=== PATIENT | male | born 1950 | race Caucasian/White ===

== ENCOUNTER 2016-09-22 11:46 | Emergency (ER) | payer OTHER ==
[~2016-09-22] VITALS: Wt 81.6 kg
[2016-09-22] MEDS ORDERED: BISOPROLOL FUMA10 MG PO (11:50)
[2016-09-22] MEDS ORDERED: AMLODIPINE BESYL5 MG PO (11:50)
[2016-09-22] MEDS ORDERED: PREDNISONE20 M1 PO (11:50)
[2016-09-22] MEDS ORDERED: LISINOPRIL40 MG PO (11:50)
[2016-09-22] MEDS ORDERED: PRAVASTATIN SOD40 MG PO (11:51)
[2016-09-22] MEDS ORDERED: ESCITALOPRAM OX10 MG PO (11:51)
[2016-09-22 12:05] LABS: BASO % 0.2 % (0.0-1.0); EOS # 0.1 10*3/uL (0.0-0.4); EOS % 0.7 % (1.0-4.0); HEMATOCRIT 42.6 % (42.0-52.0); HEMOGLOBIN 14.6 g/dl (14.0-18.0); IG # 0.1 10*3/uL (0.0-0.1); LYMPH # 2.6 10*3/uL (1.3-4.4); LYMPH % 19.4 % (27.0-41.0); MEAN CELL VOLUME 90.3 fl (80.0-94.0); MEAN CORPUSCULAR HGB 30.9 pg (27.0-31.0); MEAN CORPUSCULAR HGB CONC 34.3 g/dl (33.0-37.0); MEAN PLATELET VOLUME 10.2 fl (9.6-12.3); MONO % 7.5 % (3.0-9.0); NEUT # 9.6 10*3/uL (2.3-7.9); NEUT % 71.7 % (47.0-73.0); PLATELET COUNT AUTOMATED 244 10*3/uL (130-400); RED BLOOD COUNT 4.72 10*6/uL (4.50-5.90); RED CELL DISTRI WIDTH 13.7 % (0-14.5); WHITE BLOOD COUNT 13.3 10*3/uL (4.8-10.8)
[2016-09-22 12:14] LABS: PROTHROMBIN TIME 10.7 SECONDS (9.0-12.4)
[2016-09-22 12:32] LABS: C-REACTIVE PROTEIN < 0.29 MG/DL (0-0.3)
[2016-09-22 13:03] LABS: ALBUMIN 3.9 gm/dl (3.1-4.5); ALKALINE PHOSPHATASE 42 U/L (45-117); BILIRUBIN, TOTAL 0.7 mg/dl (0.2-1.0); BUN 24 mg/dl (7-24); CARBON DIOXIDE 23 mmol/L (21-32); CHLORIDE 107 mmol/L (98-107); EST GLOM FILT AFRICAN AMERICAN > 60 ml/min; GLUCOSE 101 mg/dL (65-99); POTASSIUM 3.4 mmol/L (3.5-5.1); SGOT/AST 32 IU/L (3-35); SGPT/ALT 32 U/L (12-78); SODIUM 143 mmol/L (136-145); TOTAL PROTEIN 7.1 gm/dL (6.4-8.2)
[2016-09-22 13:21] LABS: TROPONIN I < 0.015 ng/ml (<0.045)
[2016-09-22] MEDS ORDERED: PROTONIX40 MG PO (15:13)
== END 2016-09-22 15:19 | disposition home or self-care (01) ==
LOC: ED 11:46
PROVIDERS: Emergency Medicine
DX: K29.00 Acute gastritis without bleeding (principal); I10 Essential (primary) hypertension; E78.5 Hyperlipidemia, unspecified; K21.9 Gastro-esophageal reflux disease without esophagitis; Z79.899 Other long term (current) drug therapy